=== PATIENT | female | born 1970 | race African-American/Black ===

== ENCOUNTER 2018-09-15 11:02 | Inpatient (IN) | payer MEDICARE, MEDICAID ==
[~2018-09-15] VITALS: Ht 157.5 cm; Wt 116.7 kg
[2018-09-15] MEDS ORDERED: IPRATROPIUM BROMIDE (0.02%) 0.5MG/2.5ML NEB HHN STA (11:32)
[2018-09-15] MEDS ORDERED: SODIUM CHLORIDE 0.9% 1,000 ML IV ONE (11:32)
[2018-09-15] MEDS ORDERED: ALBUTEROL (0.083%) 2.5MG/3ML NEB HHN STA ×2 (11:32→13:06)
[2018-09-15] MEDS ORDERED: METHYLPREDNISOLONE SOD SUCC 125 MG/2 ML VIAL IV STA (11:32)
[2018-09-15 12:31] LABS: HEMATOCRIT. 37.7 % (36.0-48.0); HEMOGLOBIN. 12.6 g/dL (12.0-16.0); MEAN CORPUSCULAR HEMOGLOBIN 28.8 pg (28.0-32.0); MEAN CORPUSCULAR VOLUME 86.3 fL (81.0-99.0); MEAN PLATELET VOLUME 7.8 fl (7.4-10.4); PLATELET 249 x1000/uL (130-400); RED BLOOD CELL COUNT 4.37 mill/uL (4.2-5.4); RED CELL DISTRIBUTION WIDTH 15.3 % (11.6-14.6)
[2018-09-15 12:38] LABS: CHLORIDE 106 mEq/L (98-107)
[2018-09-15 13:03] LABS: PLATELET ESTIMATE NORMAL
[2018-09-15] MEDS ORDERED: ACETAMINOPHEN 500MG TABLET PO ONE (13:45)
[2018-09-15] MEDS ORDERED: MAGNESIUM 1 G PREMIX 100 ML IV ONE (15:45)
[2018-09-15] MEDS ORDERED: ALBUTEROL (0.5%) 2.5MG/0.5ML NEB HHN ONE (15:45)
[2018-09-15] MEDS ORDERED: ASPIRIN 325MG EC TABLET PO ONE (15:45)
[2018-09-15] MEDS ORDERED: AZITHROMYCIN 500 MG in DEXT 5% WATER 250 ML IV ONE (16:00)
[2018-09-15] MEDS ORDERED: CEFTRIAXONE 1 G PREMIX 50 ML IV ONE (16:00)
[2018-09-15] MEDS ORDERED: ALBUTEROL (0.083%) 2.5MG/3ML NEB ONE (16:32)
[2018-09-15] MEDS ORDERED: SODIUM CHLORIDE 0.9% 1,000 ML IV NR ×3 (17:57→18:55)
[2018-09-15] MEDS ORDERED: MAGNESIUM/ALUMINUM HYDROXIDE/SIMETHICONE 30ML UDC PO PRN (21:15)
[2018-09-15] MEDS ORDERED: ACETAMINOPHEN 325MG TABLET PO PRN (21:15)
[2018-09-15] MEDS ORDERED: ONDANSETRON HCL 4MG/2ML INJ IV PRN (21:15)
[2018-09-15] MEDS ORDERED: IPRATROPIUM/ALBUTEROL 0.5-3(2.5)MG/3ML NEB INH PRN (21:15)
[2018-09-15] MEDS ORDERED: BENZONATATE 100MG CAPSULE PO PRN (21:15)
[2018-09-15 22:45] VITALS: BP 133/66
[2018-09-15] MEDS ORDERED: VITAMIN D DAILY (23:54)
[2018-09-15] MEDS ORDERED: CYCLOBENZAPRINE PO (23:54)
[2018-09-15] MEDS ORDERED: HYDR-4009 MT (23:54)
[2018-09-15] MEDS ORDERED: ASPI-1159 MT (23:54)
[2018-09-15] MEDS ORDERED: ALBU90AE INH (23:54)
[2018-09-15] MEDS ORDERED: ALPR2TAB2 MT (23:54)
[2018-09-16] MEDS: GUAIFENESIN 600MG ER TABLET PO SCH ×3 (00:16→20:50)
[2018-09-16] MEDS: METHYLPREDNISOLONE SOD SUCC 40 MG/ML VIAL IV SCH ×2 (00:17→05:09)
[2018-09-16] MEDS: HYDROCODONE/ACETAMINOPHEN 10/325MG TABLET PO PRN (00:17)
[2018-09-16] MEDS: DEXT 5%/0.45% NACL 1000ML 1,000 ML IV SCH ×3 (00:17→17:15)
[2018-09-16] MEDS: IPRATROPIUM/ALBUTEROL 0.5-3(2.5)MG/3ML NEB HHN SCH ×5 (02:03→20:41)
[2018-09-16 04:00] VITALS: BP 128/77
[2018-09-16] MEDS: PROMETHAZINE/DEXTROMETHORPHAN 6.25-15MG/5ML BOTTLE 120ML PO PRN ×2 (04:35→11:01)
[2018-09-16] MEDS: DIPHENHYDRAMINE 50MG/ML VIAL IV PRN ×3 (04:35→21:40)
[2018-09-16] MEDS: THIAMINE HCL 100MG TABLET PO SCH (08:01)
[2018-09-16] MEDS: KETOROLAC 30MG/ML VIAL IV PRN ×2 (11:01→20:50)
[2018-09-16] MEDS ORDERED: IPRATROPIUM/ALBUTEROL 0.5-3(2.5)MG/3ML NEB HHN PRN (11:45)
[2018-09-16] MEDS: METHYLPREDNISOLONE SOD SUCC 125 MG/2 ML VIAL IV SCH ×3 (12:00→23:49)
[2018-09-16] MEDS ORDERED: LIDOCAINE HCL/PF 1% 2ML VIAL ONE (14:59)
[2018-09-16] MEDS ORDERED: AZITHROMYCIN 500 MG in DEXT 5% WATER 250 ML IV SCH (16:00)
[2018-09-16 16:41] LABS: BG BASE EXCESS -3.4 mmol/L (-2.0-2.0); BG CARBOXYHEMOGLOBIN 0.5 % (0.5-1.5); BG DEOXYHEMOGLOBIN 2.8 % (0.0-5.0); BG FRACTION INSPIRED OXYGEN 32; BG HCO3 ACT 21.1 mmol/L (22.0-26.0); BG METHEMOGLOBIN 0.3 % (0.0-1.5); BG OXYGEN SATURATION 97.2 % (92.0-98.5); BG OXYHEMOGLOBIN 96.4 % (94.0-97.0); BG PCO2 36.1 mmHg (35.0-45.0); BG PH 7.385 (7.350-7.450); BG PO2 94.5 mmHg (75.0-100.0); BG SAMPLE SITE RIGHT RADIAL; BG TOTAL HEMOGLOBIN 12.3 g/dL (12.0-18.0); BG VENT MODE NASAL CANNULA
[2018-09-16 20:00] VITALS: BP 150/85
[2018-09-16] MEDS: OSELTAMIVIR 75MG CAPSULE PO SCH (20:50)
[2018-09-16] MEDS: AZITHROMYCIN 500 MG in DEXT 5% WATER 250 ML IV SCH (21:00)
[2018-09-16 21:21] LABS: CLARITY URINE CLEAR (CLEAR); COLOR URINE YELLOW (YELLOW); KETONES URINE NEGATIVE (NEGATIVE); LEUKOCYTE ESTERASE URINE NEGATIVE (NEGATIVE); NITRITE URINE NEGATIVE (NEGATIVE); OCCULT BLOOD URINE NEGATIVE (NEGATIVE); PROTEIN URINE NEGATIVE (NEGATIVE); SPECIFIC GRAVITY URINE 1.004 (1.005-1.030); UROBILINOGEN URINE 0.2 E.U./dL (0.2-1.0)
[2018-09-16 21:47] LABS: *BENZODIAZEPINES SCREEN URINE NEGATIVE (NEGATIVE); *COCAINE SCREEN URINE NEGATIVE (NEGATIVE); CANNABINOID URINE SCREEN NEGATIVE (NEGATIVE); METHADONE URINE SCREEN NEGATIVE (NEGATIVE); PHENCYCLIDINE URINE SCREEN NEGATIVE (NEGATIVE)
[2018-09-16 21:48] LABS: *AMPHETAMINES SCREEN URINE NEGATIVE (NEGATIVE); *BARBITURATES SCREEN URINE NEGATIVE (NEGATIVE)
[2018-09-16 21:52] LABS: OPIATES URINE SCREEN PRESUMTIVE POSITIVE (NEGATIVE)
[2018-09-17 00:07] VITALS: BP 140/82
[2018-09-17] MEDS: TEMAZEPAM 15MG CAPSULE PO PRN (00:36)
[2018-09-17] MEDS: IPRATROPIUM/ALBUTEROL 0.5-3(2.5)MG/3ML NEB HHN SCH ×6 (00:37→20:37)
[2018-09-17] MEDS: DEXT 5%/0.45% NACL 1000ML 1,000 ML IV SCH (03:15)
[2018-09-17 04:00] VITALS: BP 137/82
[2018-09-17] MEDS: METHYLPREDNISOLONE SOD SUCC 125 MG/2 ML VIAL IV SCH ×4 (05:13→23:54)
[2018-09-17 08:00] VITALS: BP 121/86
[2018-09-17] MEDS: OSELTAMIVIR 75MG CAPSULE PO SCH ×2 (08:43→20:18)
[2018-09-17] MEDS: GUAIFENESIN 600MG ER TABLET PO SCH ×2 (08:43→20:17)
[2018-09-17] MEDS: THIAMINE HCL 100MG TABLET PO SCH (08:43)
[2018-09-17] MEDS: DIPHENHYDRAMINE 50MG/ML VIAL IV PRN ×3 (11:46→23:57)
[2018-09-17] MEDS: ENOXAPARIN 40MG/0.4ML SYR SUBCUT SCH ×2 (11:47→20:17)
[2018-09-17 12:00] VITALS: BP 128/80
[2018-09-17] MEDS: HYDROCODONE/ACETAMINOPHEN 10/325MG TABLET PO PRN (12:00)
[2018-09-17 16:00] VITALS: BP 125/81
[2018-09-17] MEDS: KETOROLAC 30MG/ML VIAL IV PRN ×2 (18:12→23:58)
[2018-09-17 20:00] VITALS: BP_SYST 116; BP_SYST 133; BP_DIAS 67; BP_DIAS 70
[2018-09-17] MEDS: AZITHROMYCIN 500 MG in DEXT 5% WATER 250 ML IV SCH (20:17)
[2018-09-18] VITALS: BP 136/86
[2018-09-18] MEDS: IPRATROPIUM/ALBUTEROL 0.5-3(2.5)MG/3ML NEB HHN SCH ×6 (00:15→20:30)
[2018-09-18] MEDS: TEMAZEPAM 15MG CAPSULE PO PRN ×2 (01:02→21:58)
[2018-09-18] MEDS: DIPHENHYDRAMINE 50MG/ML VIAL IV PRN ×3 (02:05→17:26)
[2018-09-18 04:00] VITALS: BP 161/91
[2018-09-18] MEDS: METHYLPREDNISOLONE SOD SUCC 125 MG/2 ML VIAL IV SCH ×3 (06:33→17:19)
[2018-09-18 08:00] VITALS: BP 121/77
[2018-09-18] MEDS: THIAMINE HCL 100MG TABLET PO SCH (08:23)
[2018-09-18] MEDS: GUAIFENESIN 600MG ER TABLET PO SCH ×2 (08:23→20:32)
[2018-09-18] MEDS: OSELTAMIVIR 75MG CAPSULE PO SCH ×2 (08:23→20:32)
[2018-09-18] MEDS: ENOXAPARIN 40MG/0.4ML SYR SUBCUT SCH ×2 (08:24→20:32)
[2018-09-18 11:54] VITALS: BP 118/64
[2018-09-18] MEDS: KETOROLAC 30MG/ML VIAL IV PRN (12:14)
[2018-09-18 16:00] VITALS: BP 136/76
[2018-09-18] MEDS: HYDROCODONE/ACETAMINOPHEN 10/325MG TABLET PO PRN (19:08)
[2018-09-18 20:00] VITALS: BP 157/93
[2018-09-18] MEDS: AZITHROMYCIN 500 MG in DEXT 5% WATER 250 ML IV SCH (20:32)
[2018-09-19] VITALS (7 sets, daily range): BP systolic 117–144; BP diastolic 74–96
[2018-09-19] MEDS: IPRATROPIUM/ALBUTEROL 0.5-3(2.5)MG/3ML NEB HHN SCH ×4 (00:22→12:11)
[2018-09-19] MEDS: METHYLPREDNISOLONE SOD SUCC 125 MG/2 ML VIAL IV SCH ×3 (00:52→11:50)
[2018-09-19] MEDS: GUAIFENESIN 600MG ER TABLET PO SCH (11:25)
[2018-09-19] MEDS: OSELTAMIVIR 75MG CAPSULE PO SCH (11:25)
[2018-09-19] MEDS: ENOXAPARIN 40MG/0.4ML SYR SUBCUT SCH (11:26)
[2018-09-19] MEDS: THIAMINE HCL 100MG TABLET PO SCH (11:26)
[2018-09-19] MEDS: DIPHENHYDRAMINE 50MG/ML VIAL IV PRN (11:50)
[2018-09-19] MEDS: KETOROLAC 30MG/ML VIAL IV PRN (11:51)
[2018-09-19] MEDS ORDERED: ENOXAPARIN 30MG/0.3ML SYR SUBCUT SCH (21:00)
[2018-09-20] MEDS ORDERED: AZITHROMYCIN 500 MG TABLET PO SCH (09:00)
== END 2018-09-19 17:43 | disposition home health service (06) | DRG 193 ==
LOC: ER 11:02 → 6WST 15:48 → EDBEDREQ 15:54 → ENRESERV 22:15
PROVIDERS: ADMIT Internal Medicine; ATTEND Internal Medicine
PROC: 5A09357 Assistance with Respiratory Ventilation, Less than 24 Consecutive Hours, Continuous Positive Airway Pressure (ICD-10-PCS; principal; 2018-09-16)
PROC: 5A09357 Assistance with Respiratory Ventilation, Less than 24 Consecutive Hours, Continuous Positive Airway Pressure (ICD-10-PCS; 2018-09-18)
PROC: 5A09357 Assistance with Respiratory Ventilation, Less than 24 Consecutive Hours, Continuous Positive Airway Pressure (ICD-10-PCS; 2018-09-19)
DX: J10.1 Influenza due to other identified influenza virus with other respiratory manifestations (principal); J96.00 Acute respiratory failure, unspecified whether with hypoxia or hypercapnia; R65.10 Systemic inflammatory response syndrome (SIRS) of non-infectious origin without acute organ dysfunction; J45.901 Unspecified asthma with (acute) exacerbation; Z68.42 Body mass index [BMI] 45.0-49.9, adult; J20.9 Acute bronchitis, unspecified; E28.2 Polycystic ovarian syndrome; E66.01 Morbid (severe) obesity due to excess calories; H54.7 Unspecified visual loss; M19.90 Unspecified osteoarthritis, unspecified site; F17.210 Nicotine dependence, cigarettes, uncomplicated; G47.33 Obstructive sleep apnea (adult) (pediatric); J45.909 Unspecified asthma, uncomplicated; Z80.9 Family history of malignant neoplasm, unspecified; Z82.49 Family history of ischemic heart disease and other diseases of the circulatory system; Z83.3 Family history of diabetes mellitus; Z98.2 Presence of cerebrospinal fluid drainage device
CPT/HCPCS: 36415; 36600; 71045; 78582; 80305; 82375; 82805; 82962; 83605; 83880; 84484; 85379; 87804; 93005; 94640; 94660; 96361; 96374; 96375; 99291; A9558; C1893; J0456; J0696; J1200; J1650; J1885; J2920; J2930; J3490; J7030; J7060; J7611; J7620

== ENCOUNTER 2018-10-15 22:09 | Emergency (ER) | payer MEDICARE, MEDICAID ==
[~2018-10-15] VITALS: Ht 157.5 cm; Wt 104.0 kg
[~2018-10-15 22:09] MED LIST: ALBU90AE INH; ALPR2TAB2 MT; ASPI-1159 MT; CYCLOBENZAPRINE PO; HYDR-4009 MT; VITAMIN D DAILY
[2018-10-15] MEDS ORDERED: SODIUM CHLORIDE 0.9% 1,000 ML IV ONE (23:23)
[2018-10-15] MEDS ORDERED: MORPHINE SULFATE 4 MG/ML CPJ (NOT FOR IM USE) IV STA (23:23)
[2018-10-15] MEDS ORDERED: METOCLOPRAMIDE HCL 10MG/2ML VIAL IV ONE (23:30)
[2018-10-16 00:51] LABS: BASOPHILS % 0.1 % (0.0-2.0); EOSINOPHILS % 4.6 % (0.0-5.0); HEMATOCRIT. 33.1 % (36.0-48.0); HEMOGLOBIN. 10.9 g/dL (12.0-16.0); LYMPHOCYTES % 29.3 % (20.0-50.0); MEAN CORPUSCULAR HEMOGLOBIN 28.8 pg (28.0-32.0); MEAN CORPUSCULAR VOLUME 87.4 fL (81.0-99.0); MEAN PLATELET VOLUME 7.3 fl (7.4-10.4); MONOCYTES % 10.1 % (2.0-8.0); NEUTROPHILS % 55.9 % (40.0-76.0); PLATELET 301 x1000/uL (130-400); RED BLOOD CELL COUNT 3.79 mill/uL (4.2-5.4); RED CELL DISTRIBUTION WIDTH 15.8 % (11.6-14.6)
[2018-10-16 00:56] LABS: CHLORIDE 108 mEq/L (98-107)
[2018-10-16 04:35] VITALS: BP 111/62
== END 2018-10-16 04:39 | disposition home or self-care (01) ==
LOC: ER 22:09
DX: Z98.2 Presence of cerebrospinal fluid drainage device (principal); R22.0 Localized swelling, mass and lump, head; R51 Headache; J45.909 Unspecified asthma, uncomplicated; Z88.8 Allergy status to other drugs, medicaments and biological substances; Z79.82 Long term (current) use of aspirin; Z91.013 Allergy to seafood
CPT/HCPCS: 36415; 70450; 71045; 80048; 81025; 85025; 93005; 96374; 96375; 99284; C1893; J2270; J2765; J7030

== ENCOUNTER 2019-01-24 22:39 | Inpatient (IN) | payer MEDICARE, MEDICAID ==
[~2019-01-24] VITALS: Ht 157.5 cm; Wt 115.7 kg
[2019-01-25] MEDS ORDERED: SODIUM CHLORIDE 0.9% 1,000 ML IV ONE (00:03)
[2019-01-25] MEDS ORDERED: ONDANSETRON HCL 4MG/2ML INJ IV STA (00:03)
[2019-01-25] MEDS ORDERED: MORPHINE SULFATE 4 MG/ML CPJ (NOT FOR IM USE) IV STA (00:03)
[2019-01-25] MEDS ORDERED: FAMOTIDINE 20MG/2ML VIAL IV STA (00:03)
[2019-01-25 00:27] LABS: EOSINOPHILS % 1.3 % (0.0-5.0); HEMATOCRIT. 40.3 % (36.0-48.0); HEMOGLOBIN. 13.2 g/dL (12.0-16.0); LYMPHOCYTES % 19.7 % (20.0-50.0); MEAN CORPUSCULAR HEMOGLOBIN 27.5 pg (28.0-32.0); MEAN CORPUSCULAR VOLUME 83.9 fL (81.0-99.0); MEAN PLATELET VOLUME 7.8 fl (7.4-10.4); MONOCYTES % 4.4 % (2.0-8.0); NEUTROPHILS % 73.6 % (40.0-76.0); PLATELET 285 x1000/uL (130-400); RED BLOOD CELL COUNT 4.81 mill/uL (4.2-5.4); RED CELL DISTRIBUTION WIDTH 16.1 % (11.6-14.6)
[2019-01-25 00:34] LABS: CHLORIDE 106 mEq/L (98-107)
[2019-01-25 00:35] LABS: PROTHROMBIN TIME 10.5 sec (9.6-11.0)
[2019-01-25] MEDS ORDERED: LEVOFLOXACIN 750MG PREMIX 150 ML IV ONE (02:15)
[2019-01-25] MEDS ORDERED: METRONIDAZOLE 500 MG PREMIX 100 ML IV ONE (02:15)
[2019-01-25] MEDS ORDERED: IOHEXOL-300 100 ML BOTTLE ONE (03:49)
[2019-01-25 05:42] LABS: CLARITY URINE CLEAR (CLEAR); COLOR URINE YELLOW (YELLOW); KETONES URINE NEGATIVE (NEGATIVE); LEUKOCYTE ESTERASE URINE NEGATIVE (NEGATIVE); NITRITE URINE NEGATIVE (NEGATIVE); OCCULT BLOOD URINE NEGATIVE (NEGATIVE); PROTEIN URINE NEGATIVE (NEGATIVE); SPECIFIC GRAVITY URINE 1.057 (1.005-1.030); UROBILINOGEN URINE 0.2 E.U./dL (0.2-1.0)
[2019-01-25] MEDS ORDERED: MORPHINE SULFATE 4 MG/ML CPJ (NOT FOR IM USE) IV ONE (06:00)
[2019-01-25] MEDS ORDERED: IPRATROPIUM/ALBUTEROL 0.5-3(2.5)MG/3ML NEB INH PRN (08:30)
[2019-01-25] MEDS ORDERED: ENOXAPARIN 40MG/0.4ML SYR SUBCUT SCH ×2 (08:30→21:00)
[2019-01-25] MEDS ORDERED: LEVOFLOXACIN 500MG PREMIX 100 ML IV SCH ×2 (08:30→21:00)
[2019-01-25] MEDS ORDERED: ONDANSETRON HCL 4MG/2ML INJ IV PRN (08:30)
[2019-01-25] MEDS ORDERED: GUAIFENESIN 200MG/10ML SUGAR FREE UDC PO PRN (08:30)
[2019-01-25] MEDS ORDERED: DOCUSATE SODIUM 100MG CAPSULE PO PRN (08:30)
[2019-01-25] MEDS ORDERED: HYDRALAZINE 20MG/ML VIAL IV PRN (08:30)
[2019-01-25] MEDS ORDERED: DIPHENHYDRAMINE 50MG/ML VIAL IV PRN (08:30)
[2019-01-25] MEDS ORDERED: CLONIDINE 0.1MG TABLET PO PRN (08:30)
[2019-01-25] MEDS ORDERED: LORAZEPAM 2MG/ML CPJ IV PRN (08:30)
[2019-01-25] MEDS ORDERED: ACETAMINOPHEN 325MG TABLET PO PRN (08:30)
[2019-01-25] MEDS ORDERED: NA PHOS,M-B/NA PHOS,DI-BA ENEMA 118ML PR PRN (08:30)
[2019-01-25] MEDS ORDERED: MAGNESIUM/ALUMINUM HYDROXIDE/SIMETHICONE 30ML UDC PO PRN (08:30)
[2019-01-25] MEDS ORDERED: HYDROCODONE/ACETAMINOPHEN 10/325MG TABLET PO PRN (08:30)
[2019-01-25] MEDS ORDERED: HYDROMORPHONE HCL/PF 1MG/ML CPJ IV PRN (08:30)
[2019-01-25 11:51] VITALS: BP 100/66
[2019-01-25 12:00] VITALS: BP 100/66
[2019-01-25] MEDS ORDERED: SODIUM CHLORIDE 0.45% 1,000 ML IV SCH (13:00)
[2019-01-25] MEDS ORDERED: METRONIDAZOLE 500 MG PREMIX 100 ML IV SCH ×2 (14:00)
[2019-01-25] MEDS ORDERED: SODIUM CHLORIDE 0.9% INJ 3ML FLUSH IVF SCH (14:00)
[2019-01-25 15:49] LABS: CREATINE KINASE 83 IU/L (26-192)
[2019-01-25 15:50] LABS: CREATINE KINASE MB FRACTION < 1.0 ng/mL (0.5-3.6)
[2019-01-25 16:00] VITALS: BP 118/72
[2019-01-25 16:39] VITALS: BP 118/72
== END 2019-01-25 17:05 | disposition home or self-care (01) | DRG 392 ==
LOC: ER 22:39 → 5WST 01-25 02:53 → EDBEDREQTM 01-25 02:58 → EDBEDREQ 01-25 02:58 → CANRESERV 01-25 07:18 → ENRESERV 01-25 07:18
PROVIDERS: ADMIT Internal Medicine; ATTEND Internal Medicine
DX: K57.90 Diverticulosis of intestine, part unspecified, without perforation or abscess without bleeding (principal); E87.2 Acidosis; J44.9 Chronic obstructive pulmonary disease, unspecified; M54.9 Dorsalgia, unspecified; R16.0 Hepatomegaly, not elsewhere classified; Z79.899 Other long term (current) drug therapy; Z98.2 Presence of cerebrospinal fluid drainage device; Z91.013 Allergy to seafood; Z91.041 Radiographic dye allergy status
CPT/HCPCS: 36415; 71045; 74177; 82550; 82553; 83605; 84484; 93005; J1956; J2270; J2405; J3490; J7030; Q9967

== ENCOUNTER 2023-08-25 01:39 | Emergency (ER) | payer MEDICARE, MEDICAID ==
[~2023-08-25] VITALS: Ht 160 cm; Wt 68.0 kg
[~2023-08-25 01:39] MED LIST changes: -ASPI-1159 MT; +ASPI-1497 MT
[2023-08-25 01:59] VITALS: BP 114/74; O2SAT 96
[2023-08-25] MEDS ORDERED: ACETAMINOPHEN 325MG TABLET PO ONE (02:00)
[2023-08-25] MEDS ORDERED: METOCLOPRAMIDE HCL 10MG/2ML VIAL IV ONE (02:00)
[2023-08-25 02:30] LABS: BASOPHILS % 0.9 % (0.0-2.0); HEMOGLOBIN. 12.6 g/dL (12.0-16.0); LYMPHOCYTES % 40.3 % (20.0-50.0); MEAN CORPUSCULAR HEMOGLOBIN 29.3 pg (28.0-32.0); MEAN CORPUSCULAR HGB CONC 33.2 g/dL (31.0-37.0); MEAN CORPUSCULAR VOLUME 88.2 fL (81.0-99.0); MEAN PLATELET VOLUME 7.9 fl (7.4-10.4); MONOCYTES % 9.3 % (2.0-8.0); NEUTROPHILS % 44.5 % (40.0-76.0); PLATELET 239 x1000/uL (130-400); RED BLOOD CELL COUNT 4.32 mill/uL (4.2-5.4); RED CELL DISTRIBUTION WIDTH 15.3 % (11.6-14.6); WHITE BLOOD COUNT 5.7 x1000/uL (4.5-11.0)
[2023-08-25] MEDS ORDERED: METOCLOPRAMIDE HCL 10MG TABLET PO ONE (02:30)
[2023-08-25 02:34] LABS: ALANINE AMINOTRANSFERASE 27 IU/L (10-49); ALBUMIN 3.8 g/dL (3.2-4.8); ASPARTATE AMINOTRANSFERASE 21 IU/L (<34); BILIRUBIN TOTAL 0.3 mg/dL (0.1-1.0); CALCIUM 9.3 mg/dL (8.7-10.4); CARBON DIOXIDE 31 mEq/L (21-32); CHLORIDE 106 mEq/L (98-107); CREATININE 0.7 mg/dL (0.6-1.0); GLUCOSE 104 mg/dL (70-105); PROTEIN TOTAL 6.4 g/dL (6.0-8.3); SODIUM 139 mEq/L (136-145); UREA NITROGEN BLOOD 12 mg/dL (9-23)
[2023-08-25 03:17] LABS: *AMPHETAMINES SCREEN URINE NEGATIVE (NEGATIVE); *BARBITURATES SCREEN URINE NEGATIVE (NEGATIVE); *BENZODIAZEPINES SCREEN URINE NEGATIVE (NEGATIVE); *COCAINE SCREEN URINE NEGATIVE (NEGATIVE); CANNABINOID URINE SCREEN NEGATIVE (NEGATIVE); ECSTASY MDMA SCREEN URINE NEGATIVE (NEGATIVE); METHADONE URINE SCREEN Neg (NEGATIVE); OPIATES URINE SCREEN NEGATIVE (NEGATIVE); PHENCYCLIDINE URINE SCREEN NEGATIVE (NEGATIVE)
[2023-08-25 03:31] LABS: ETHANOL BLOOD < 10 mg/dL (<10); TROPONIN I HIGH SENSITIVITY < 4 ng/L (3.0-34)
[2023-08-25] MEDS ORDERED: ACET-2708 MT (04:24)
[2023-08-25] MEDS ORDERED: METO-293 MT (04:24)
[2023-08-25 04:52] VITALS: PULSE 79; RESP 18; TEMP 98.3
== END 2023-08-25 05:02 | disposition home or self-care (01) ==
LOC: ER 01:59
DX: B34.9 Viral infection, unspecified (principal); H61.23 Impacted cerumen, bilateral; J45.909 Unspecified asthma, uncomplicated; Z91.040 Latex allergy status; Z91.013 Allergy to seafood
CPT/HCPCS: 80053; 80305; 80320; 83880; 83605; 83690; 85025; 84484; 36415; 71045; 93005; 99284; J8597; J2765; G0480